=== PATIENT | male | born 1950 | race Caucasian/White ===

== ENCOUNTER 2022-01-24 08:56 | Day surgery (SDC) | payer MEDICARE, OTHER ==
[2022-01-24] MEDS ORDERED: Propofol 200 MG/20 ML SDV IV ONE (08:57)
[2022-01-24] MEDS ORDERED: Sodium Chloride 0.9% 10 ML Syringe FLUSH PRN (09:00)
[2022-01-24] MEDS: Lactated Ringers 1,000 ML IV SCH (10:02)
== END 2022-01-24 13:15 | disposition home or self-care (01) ==
LOC: FB.SDS 08:56
PROVIDERS: ATTEND Surgery
DX: Z12.11 Encounter for screening for malignant neoplasm of colon (principal); K57.30 Diverticulosis of large intestine without perforation or abscess without bleeding; I10 Essential (primary) hypertension; I48.0 Paroxysmal atrial fibrillation; F32.A Depression, unspecified; Z86.010 Personal history of colon polyps; Z88.8 Allergy status to other drugs, medicaments and biological substances; Z91.013 Allergy to seafood; Z88.0 Allergy status to penicillin; Z79.899 Other long term (current) drug therapy; Z90.49 Acquired absence of other specified parts of digestive tract; Z98.890 Other specified postprocedural states; Z95.5 Presence of coronary angioplasty implant and graft
CPT/HCPCS: 00812-QZ; J2704; J7120